=== PATIENT | male | born 1985 | race American Indian/Alaskan Native ===

== ENCOUNTER 2017-09-13 16:18 | Emergency (ER) | payer MEDICAID, OTHER ==
[2017-09-13] MEDS ORDERED: Acetaminophen/HYDROcodone 325-10 MG Tab PO ONE (19:15)
[2017-09-13] MEDS ORDERED: Clindamycin HCl 150 MG Cap PO ONE (19:15)
--- NOTE | 2017-09-13 19:19 | EDM.PDOC ---
ED HPI GENERAL MEDICAL PROBLEM - General Chief Complaint: ENT Problem Stated Complaint: BACK TOOTH,RIGHT SIDE, TOP PAIN Time Seen by Provider: 09/13/17 19:16 Source of Information: Reports: Patient History Limitations: Reports: No Limitations - History of Present Illness INITIAL COMMENTS - FREE TEXT/NARRATIVE: c/o left upper tooth problem few days worse today. Right Upper Face Pain Score (Numeric/FACES): 7 - Related Data Allergies Allergy/AdvReac Type Severity Reaction Status Date / Time Penicillins Allergy Chills Verified 09/13/17 18:59 Home Meds: Home Meds Ibuprofen 800 mg PO Q8H PRN 09/13/17 [History] Naproxen Sodium [Aleve] 220 mg PO Q8H PRN 09/13/17 [History] Past Medical History - Past Health History Medical/Surgical History: Denies Medical/Surgical History Social & Family History - Tobacco Use Smoking Status *Q: Never Smoker - Caffeine Use Caffeine Use: Reports: Coffee, Soda, Tea - Recreational Drug Use Recreational Drug Use: No ED ROS ENT - Review of Systems Review Of Systems: ROS reveals no pertinent complaints other than HPI. ED EXAM, ENT - Physical Exam Exam: See Below Exam Limited By: No Limitations General Appearance: Alert, WD/WN, Mild Distress, Other (tearful) Ears: Hearing Grossly Normal Mouth/Throat: Dental Abcess, Dental Pain, Dental Tenderness, Other (left upper molar extensive decay) Head: Atraumatic Neck: Non-Tender, Full Range of Motion Respiratory/Chest: No Respiratory Distress Cardiovascular: Regular Rate, Rhythm GI/Abdominal: Soft, Non-Tender Neurological: Alert, Oriented, Normal Cognition, Normal Gait, No Motor/Sensory Deficits Psychiatric: Tearful Skin: Warm, Dry, Normal Color Lymphatic: No Adenopathy Course - Vital Signs Last Recorded V/S: Last Vital Signs Temp 36.7 C 09/13/17 17:55 Pulse 74 09/13/17 17:55 Resp 16 09/13/17 17:55 BP 134/89 09/13/17 17:55 Pulse Ox 99 09/13/17 17:55 - Orders/Labs/Meds Orders: Active Orders 24 hr Category Date Time Status Acetaminophen/HYDROcodone [Broadus 325-10 MG] Med 09/13/17 19:15 Once 1 tab PO ONETIME ONE Clindamycin HCl [Cleocin] Med 09/13/17 19:15 Once 300 mg PO ONETIME ONE Departure - Departure Time of Disposition: 19:18 Disposition: Home, Self-Care 01 Condition: Good Clinical Impression: Dental abscess, Dental caries - Discharge Information Instructions: Dental Abscess, [id number] Additional Instructions: 1) avoid solid foods, sodas, candies 2) see dentist rx given; clindamycin 150mg qid x 40 - My Orders Last 24 Hours: My Active Orders 09/13/17 19:15 Acetaminophen/HYDROcodone [Broadus 325-10 MG] 1 tab PO ONETIME ONE Clindamycin HCl [Cleocin] 300 mg PO ONETIME ONE - Assessment/Plan Last 24 Hours: My Active Orders 09/13/17 19:15 Acetaminophen/HYDROcodone [Broadus 325-10 MG] 1 tab PO ONETIME ONE Clindamycin HCl [Cleocin] 300 mg PO ONETIME ONE
== END 2017-09-13 19:29 | disposition home or self-care (01) ==
LOC: DL.ED 16:18
DX: K04.7 Periapical abscess without sinus (principal); K02.9 Dental caries, unspecified; Z88.0 Allergy status to penicillin
CPT/HCPCS: 99282; A9270